=== PATIENT | female | born 1970 | race Caucasian/White ===

== ENCOUNTER 2023-08-08 18:19 | Emergency (ER) | payer MEDICAID, OTHER ==
[~2023-08-08] VITALS: Ht 167.6 cm; Wt 99.8 kg
[2023-08-08] MEDS ORDERED: METOCLOPRAMIDE HCL 10 MG/2 ML VIAL IV ONE (19:15)
[2023-08-08] MEDS ORDERED: IV NORMAL SALINE 1000 ML BAG IV ONE (19:15)
[2023-08-08] MEDS ORDERED: KETOROLAC TROMETHAMINE 30 MG INJ IVP ONE (19:15)
[2023-08-08] MEDS ORDERED: diphenhydrAMINE 50 MG/1 ML VIAL IVP ONE (19:15)
[2023-08-08 19:20] LABS: BASOPHILS # (AUTO) 0.1 K/UL (0.0-0.2); BASOPHILS % (AUTO) 1.1 % (0.0-2.0); EOSINOPHILS # (AUTO) 0.6 K/uL (0.0-0.7); EOSINOPHILS % (AUTO) 5.7 % (0.0-7.0); HEMATOCRIT 39.7 % (31.2-41.9); HEMOGLOBIN 13.2 g/dL (10.9-14.3); LYMPHOCYTES # (AUTO) 4.5 K/uL (0.8-4.8); LYMPHOCYTES % (AUTO) 43.9 % (20.5-51.5); MEAN CORPUSCULAR HEMOGLOBIN 29.8 uug (24.7-32.8); MEAN CORPUSCULAR HGB CONC 33 g/dL (32.3-35.6); MEAN CORPUSCULAR VOLUME 89.4 fL (75.5-95.3); MONOCYTES # (AUTO) 0.8 K/uL (0.1-1.30); MONOCYTES % (AUTO) 8.2 % (0.0-11.0); NEUTROPHILS # (AUTO) 4.2 K/uL (1.8-8.9); NEUTROPHILS % (AUTO) 41.1 % (38.5-71.5); PLATELET COUNT (AUTO) 199 K/uL (179-408); RED BLOOD CELL COUNT(AUTO) 4.44 MIL/uL (3.63-4.92); WHITE BLOOD COUNT (AUTO) 10.2 K/uL (3.8-11.8)
[2023-08-08 19:21] LABS: DIFFERENTIAL COMMENT 1
[2023-08-08] MEDS ORDERED: diphenhydrAMINE 50 MG/1 ML VIAL ONE (19:26)
[2023-08-08] MEDS ORDERED: METOCLOPRAMIDE HCL 10 MG/2 ML VIAL ONE (19:26)
[2023-08-08] MEDS ORDERED: KETOROLAC TROMETHAMINE 30 MG INJ ONE (19:26)
[2023-08-08 19:27] LABS: CALCIUM 8.9 mg/dL (8.5-10.1); CREATININE 0.9 mg/dL (0.6-1.3); ERYTHROCYTE SEDIMENTATION RATE 5 MM/HR (0-20); POTASSIUM 3.7 mmol/L (3.5-5.1)
[2023-08-08] MEDS ORDERED: OXYM15MI4 NS (20:36)
[2023-08-08] MEDS ORDERED: FLUT16SP16 BNOSTRILS (20:36)
[2023-08-08] MEDS ORDERED: ACET1TAB23 PO (20:36)
[2023-08-08] MEDS ORDERED: AMOX-430 PO (20:36)
[2023-08-08] MEDS ORDERED: PSEU-249 PO (20:36)
[2023-08-08 21:02] VITALS: BP 128/68; O2SAT 98
== END 2023-08-08 21:03 | disposition home or self-care (01) ==
LOC: ER 18:24
DX: R51.9 Headache, unspecified (principal); J01.30 Acute sphenoidal sinusitis, unspecified; Z79.2 Long term (current) use of antibiotics; Z79.899 Other long term (current) drug therapy
CPT/HCPCS: 99285; 96374; 70450; 96375; 96361; 80048; 85025; 85651; 36415; J1200; J1885; J2765; J7040; A4606; A4663